=== PATIENT | male | born 1955 | race Caucasian/White ===

== ENCOUNTER 2017-07-10 07:29 | Day surgery (SDC) | payer BC ==
[~2017-07-10 07:29] MED LIST: ACETAMINOPHEN 1,000 MG/100 ML BTL IV ONE; BUPIVACAINE 0.25% MPF 30ML VIAL IVP ONE; CEFAZOLIN 2 Gram 2 GM/50 ML BAG IVPB ONE; METHYLPREDNISOLONE 40MG/VIAL IM ONE; MORPHINE SULFATE 5 MG/ML PFS IVP ONE
[2017-07-10] MEDS ORDERED: HYDROCODONE/APAP 7.5/325MG TABLET PO ONE (13:14)
[2017-07-10] MEDS ORDERED: SEVOFLURANE 250 ML INH ONE (14:00)
[2017-07-10] MEDS ORDERED: MIDAZOLAM HCL 2MG/2ML VIAL IV ONE (14:00)
[2017-07-10] MEDS ORDERED: PROPOFOL 10 MG/ML VIAL IV ONE (14:00)
[2017-07-10] MEDS ORDERED: ONDANSETRON HCL IV 4 MG/2 ML VIAL IVP ONE (14:00)
[2017-07-10] MEDS ORDERED: LIDOCAINE 2% MDV (20MG/ML) 20ML VIAL IV ONE (14:00)
[2017-07-10] MEDS ORDERED: DEXAMETHASONE 4 MG/ML 1ML VIAL IVP ONE (14:00)
[2017-07-10] MEDS ORDERED: BUPIVACAINE 0.75% W/EPI MPF 30ML VIAL IVP ONE (14:00)
--- NOTE | 2017-07-18 16:23 | Operative Note ---
DATE: 07/10/2017 PREOPERATIVE DIAGNOSIS: INTERNAL DERANGEMENT, LEFT KNEE. POSTOPERATIVE DIAGNOSES: 1. DIFFUSE SYNOVITIS. 2. 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 3. GRADE 3 CHONDROMALACIA PATELLA. 4. GRADE 3 CHONDROMALACIA MEDIAL FEMORAL CONDYLE. PROCEDURE: 1. LEFT KNEE ARTHROSCOPY WITH SYNOVECTOMY. 2. LEFT KNEE ARTHROSCOPY WITH PARTIAL MEDIAL MENISCECTOMY AND INTRA-ARTICULAR DEBRIDEMENT. STAFF SURGEON: YVONNE MCDONALD M.D. ANESTHESIA: GENERAL. PREPARATION: CHLORAPREP. INDIVIDUAL CONSIDERATIONS: PROCEDURE: The patient was taken to the Operating Room and placed supine on the operating table. He had a successful induction of a general anesthetic. His left lower extremity was prepped and draped in the usual fashion. The patient had superolateral inflow cannula placed. The skin was infiltrated with 0.50% Marcaine with Epinephrine prior. The knee was then inflated with normal saline after clear effusion was drained. An inferior medial and an inferior lateral portal was made in a similar fashion. The arthroscope was introduced through the inferior lateral portal up in the pouch. The patellofemoral compartment had grade 3 changes, primarily the patella. There was synovitis in the pouch in both gutters. A shaver was introduced. The patella was smoothed with a chondroplasty and both medial and lateral gutters and pouch were debrided of synovium with a shaver. Medially, he had grade 3 changes primarily on the medial femoral condyle and a complex degenerative tear involving the posterior horn of the medial meniscus and this was debrided back to stable with basket forceps and a shaver. The cruciates were normal. Lateral compartment structures were normal. The knee was then irrigated with saline to remove loose floating debris. Portals were closed with gin and 20 mL of 0.25 % plain Marcaine along with 4 mg of Morphine and 40 mg DepoMedrol were injected into the knee and a sterile Bulkee compressive dressing was applied. The patient tolerated the procedure well. Needle and sponge counts were correct. Estimated blood loss was minimal. He was taken back to Recovery in good condition. There were no complications. JOB NUMBER: [id number] MTDD
== END 2017-07-10 11:00 | disposition home or self-care (01) ==
LOC: SUR 07:29
PROVIDERS: ATTEND Orthopaedic Surgery
DX: S83.242A Other tear of medial meniscus, current injury, left knee, initial encounter (principal); M94.262 Chondromalacia, left knee; I10 Essential (primary) hypertension; E78.00 Pure hypercholesterolemia, unspecified
CPT/HCPCS: 29881; 01400; J2405; J0690; J2270; J3490; J1030